=== PATIENT | male | born 1960 | race African-American/Black ===

== ENCOUNTER 2025-02-27 11:53 | Emergency (ER) | payer SELFPAY ==
[~2025-02-27] VITALS: Ht 188 cm; Wt 79.0 kg
[2025-02-27 11:57] VITALS: O2SAT 99
[2025-02-27] MEDS: CYCLOBENZAPRINE 10MG TABLET PO ONE (13:06)
[2025-02-27] MEDS: LIDOCAINE 5% PATCH TOP SCH (13:06)
[2025-02-27] MEDS: ACETAMINOPHEN 500MG TABLET PO ONE (13:06)
[2025-02-27] MEDS ORDERED: LIDO700A30 TP (14:32)
[2025-02-27] MEDS ORDERED: CYCL5TAB3 MT (14:32)
[2025-02-27] MEDS ORDERED: ACET-2708 MT (14:32)
[2025-02-27 14:57] VITALS: BP 130/70; PULSE 80; RESP 15; TEMP 36.9; O2SAT 99
== END 2025-02-27 14:59 | disposition home or self-care (01) ==
LOC: ER 11:53
DX: S39.012A Strain of muscle, fascia and tendon of lower back, initial encounter (principal); X58.XXXA Exposure to other specified factors, initial encounter; Y93.89 Activity, other specified; Y92.89 Other specified places as the place of occurrence of the external cause; Y99.8 Other external cause status
CPT/HCPCS: 72100; 99284